=== PATIENT | male | born 1960 | race Caucasian/White ===

== ENCOUNTER → 2017-01-26 | Outpatient (CLI) | payer MEDICARE, BC ==
[~2017-01-26] MED LIST: AMBIEN 10MG10 MG PO; ASPIRIN 32325 MG/TAB PO; ASPIRIN 81M81 MG/TA2 PO; CALCIUM1 CAP PO; CASODEX 50MG TA50 MG PO; CELEBREX 200MG200 MG PO; HORMONE REPLACEMENT; NEXIUM 20MG20 MG PO; NEXIUM 40MG40 MG PO; PERCOCET 500 MG1 TAB PO; PREDNISONE1 MG PO; PRILOSEC 20MG20 MG PO; PROTONIX 40MG T40 MG PO; TYLENOL 325MG325 MG PO; TYLENOL EXTRA500 M1 PO; ZOFRAN ODT8 MG PO; [UNRECOGNIZED DRUG - OTHER]
== END ==
LOC: COL.RAD 09:34
DX: C61 Malignant neoplasm of prostate (principal); C79.51 Secondary malignant neoplasm of bone; Z90.79 Acquired absence of other genital organ(s)
CPT/HCPCS: A9503; Q9967

== ENCOUNTER 2017-04-13 12:47 | Observation (INO) | payer MEDICARE, BC ==
[~2017-04-13] VITALS: Ht 180.3 cm; Wt 90.9 kg
[~2017-04-13 12:47] MED LIST changes: -AMBIEN 10MG10 MG PO; -ASPIRIN 81M81 MG/TA2 PO; -CELEBREX 200MG200 MG PO; -NEXIUM 20MG20 MG PO; -PROTONIX 40MG T40 MG PO; -ZOFRAN ODT8 MG PO
[2017-04-13] MEDS ORDERED: ZOFRAN ODT8 MG PO (13:07)
[2017-04-13] MEDS ORDERED: CELEBREX 200MG200 MG PO (13:07)
[2017-04-13] MEDS ORDERED: NEXIUM 20MG20 MG PO (13:08)
[2017-04-13 13:23] LABS: HEMOGLOBIN 12.1 g/dl (13.5-18.0); MEAN CELL VOLUME 86 fl (80.0-100.0); MEAN CORPUSCULAR HEMOGLOBIN 29 pg (27.0-31.0); MEAN CORPUSCULAR HGB CONC 34 g/dl (33.0-37.0); MEAN PLATELET VOLUME 10.1 fl (7.4-10.4); PLATELET COUNT 113 K/mm3 (130-400); RED BLOOD COUNT 4.11 M/mm3 (4.20-5.60); REDCELL DISTRIBUTION WIDTH-CV 13.2 % (11.5-14.5); WHITE BLOOD COUNT 3.2 K/mm3 (4.8-10.8)
[2017-04-13 13:24] LABS: HEMATOCRIT 35.3 % (42.0-52.0)
[2017-04-13 13:25] LABS: ADD PATHOLOGY DIFF REVIEW NO
[2017-04-13 13:33] LABS: ADJUSTED CALCIUM 8.6 mg/dL (8.4-10.2); ALANINE AMINOTRANSFERASE 17 U/L (21-72); ALBUMIN 4.2 gm/dL (3.5-5.0); ALKALINE PHOSPHATASE 150 U/L (50-136); ANION GAP 10 mmol/L (7-16); BILIRUBIN,TOTAL 0.9 mg/dL (0.0-1.0); BLOOD UREA NITROGEN 15 mg/dL (9-20); CALCIUM 8.8 mg/dL (8.4-10.2); CARBON DIOXIDE 25 mmol/L (22-30); CHLORIDE 97 mmol/L (98-107); CREATININE, serum 0.64 mg/dL (0.66-1.25); GLUCOSE 100 mg/dL (74-106); LIPASE 32 U/L (23-300); POTASSIUM 3.9 mmol/L (3.4-5.0); SODIUM 132 mmol/L (137-145)
[2017-04-13 13:44] LABS: B-TYPE NATRIURETIC PEPTIDE 113 pg/mL (0-125)
[2017-04-13 13:45] LABS: TROPONIN-I < 0.012 ng/mL (0.000-0.034)
[2017-04-13 14:06] LABS: BAND 30 % (0-10); EOSINOPHIL 1 % (0-4); MYELOCYTE 3 % (0-0); NEUTROPHILS 52 % (42.0-75.2); OVALOCYTES 1+; PLATELET ESTIMATE NORMAL (NORMAL); TOTAL CELLS COUNTED 100
[2017-04-13 16:40] LABS: CHOLESTEROL 209 mg/dL (120-200); HDL CHOLESTEROL 44 mg/dL; LDL CHOLESTEROL 119 mg/dL; TRIGLYCERIDE 229 mg/dL
[2017-04-13 16:54] VITALS: BP 103/68; PULSE 69; TEMP 98
[2017-04-13 17:00] VITALS: BP 102/70; BP 104/70; PULSE 70; TEMP 98
[2017-04-13 17:54] VITALS: BP 103/68; PULSE 69; TEMP 98
[2017-04-13 17:55] VITALS: BP 103/68; PULSE 69; TEMP 98
[2017-04-13 17:56] VITALS: BP 103/68; PULSE 69; TEMP 98
[2017-04-13 19:20] VITALS: BP 102/56; PULSE 71; TEMP 98.4
[2017-04-13] MEDS ORDERED: AMBIEN 10MG10 MG PO (19:59)
[2017-04-14] VITALS (8 sets, daily range): BP systolic 100–127; BP diastolic 54–83; PULSE 59–98; TEMP 97.9–98.1
[2017-04-14] MEDS ORDERED: PROTONIX 40MG T40 MG PO (11:45)
[2017-04-14] MEDS ORDERED: ASPIRIN 81M81 MG/TA2 PO (14:32)
== END 2017-04-14 16:42 | disposition home or self-care (01) ==
LOC: COL.ER 12:47 → MEDICAL 15:20
PROVIDERS: Emergency Medicine
DX: R07.89 Other chest pain (principal); C61 Malignant neoplasm of prostate; C79.51 Secondary malignant neoplasm of bone; Z92.3 Personal history of irradiation; Z82.49 Family history of ischemic heart disease and other diseases of the circulatory system
CPT/HCPCS: A9502; G0378; J1650; J2270; J2785; J7030; Q9967

== ENCOUNTER → 2018-01-04 | Outpatient (CLI) | payer MEDICARE, BC ==
[~2018-01-04] MED LIST changes: +AMBIEN 10MG10 MG PO; +ASPIRIN 81M81 MG/TA2 PO; +CELEBREX 200MG200 MG PO; +NEXIUM 20MG20 MG PO; +PROTONIX 40MG T40 MG PO; +ZOFRAN ODT8 MG PO
== END ==
LOC: COL.RAD 08:56
DX: C61 Malignant neoplasm of prostate (principal); C79.51 Secondary malignant neoplasm of bone; J84.10 Pulmonary fibrosis, unspecified
CPT/HCPCS: A9503; Q9967

== ENCOUNTER → 2018-06-20 | Outpatient (CLI) | payer MEDICARE, BC | LOC: COL.RAD 08:15 | DX: C79.51 Secondary malignant neoplasm of bone (principal); M48.02 Spinal stenosis, cervical region; M50.322 Other cervical disc degeneration at C5-C6 level; M50.222 Other cervical disc displacement at C5-C6 level; M25.78 Osteophyte, vertebrae; H91.91 Unspecified hearing loss, right ear; Z85.46 Personal history of malignant neoplasm of prostate | CPT/HCPCS: A9585 ==

== ENCOUNTER → 2018-07-05 | Outpatient (CLI) | payer MEDICARE, BC | LOC: COL.RAD 07-04 10:30 | DX: C61 Malignant neoplasm of prostate (principal); C79.51 Secondary malignant neoplasm of bone; M84.48XA Pathological fracture, other site, initial encounter for fracture | CPT/HCPCS: A9503; Q9967 ==

== ENCOUNTER → 2018-10-19 | Outpatient (CLI) | payer MEDICARE, BC | LOC: COL.LAB 10:06 | DX: Z01.812 Encounter for preprocedural laboratory examination (principal) ==

== ENCOUNTER → 2019-01-02 | Outpatient (CLI) | payer MEDICARE, BC | LOC: COL.RAD 10:07 | DX: C61 Malignant neoplasm of prostate (principal); C79.51 Secondary malignant neoplasm of bone; Z96.651 Presence of right artificial knee joint | CPT/HCPCS: A9503; Q9967 ==

== ENCOUNTER → 2019-06-01 | Outpatient (CLI) | payer MEDICARE, BC | LOC: COL.RAD 05-16 10:30 | DX: C61 Malignant neoplasm of prostate (principal); C79.51 Secondary malignant neoplasm of bone | CPT/HCPCS: A9503; Q9967 ==

== ENCOUNTER 2019-09-17 09:54 | Inpatient (IN) | payer MEDICARE, BC ==
[~2019-09-17] VITALS: Ht 177.8 cm; Wt 78.1 kg
[2019-09-17] MEDS ORDERED: FENTANYL 25 MCG TD (10:25)
[2019-09-17] MEDS ORDERED: COMPAZINE 110 MG/TAB PO (10:25)
[2019-09-17 10:59] LABS: MEAN CELL VOLUME 87 fl (80.0-100.0); MEAN CORPUSCULAR HGB CONC 32 g/dl (33.0-37.0); MEAN PLATELET VOLUME 9.3 fl (7.4-10.4); PLATELET COUNT 164 K/mm3 (130-400); REDCELL DISTRIBUTION WIDTH-CV 16.5 % (11.5-14.5)
[2019-09-17 11:06] LABS: HEMATOCRIT 27.1 % (42.0-52.0); HEMOGLOBIN 8.7 g/dl (13.5-18.0); MEAN CORPUSCULAR HEMOGLOBIN 28 pg (27.0-31.0)
[2019-09-17 11:21] LABS: BAND 12 % (0-10); LYMPHOCYTE 14 % (20.0-51.0); METAMYELOCYTE 5 % (0-0); MYELOCYTE 4 % (0-0); NEUTROPHILS 58 % (42.0-75.2); NUCLEATED RED BLOOD CELL 6 (0-6); OVALOCYTES 1+; PLATELET ESTIMATE NORMAL (NORMAL)
[2019-09-17 11:25] LABS: ALANINE AMINOTRANSFERASE < 6 U/L (21-72); ALKALINE PHOSPHATASE 353 U/L (50-136); ANION GAP 11 mmol/L (7-16); AST,SGOT 54 U/L (15-37); BILIRUBIN,TOTAL 0.9 mg/dL (0.0-1.0); BLOOD UREA NITROGEN 11 mg/dL (9-20); C-REACTIVE PROTEIN 0.9 mg/dL (0.0-0.9); CALCIUM 8.9 mg/dL (8.4-10.2); CARBON DIOXIDE 19 mmol/L (22-30); CHLORIDE 108 mmol/L (98-107); GLUCOSE 189 mg/dL (74-106); LACTATE DEHYDROGENASE 866 U/L (313-618); MAGNESIUM 2.3 mg/dL (1.6-2.3); POTASSIUM 3.7 mmol/L (3.4-5.0); SODIUM 139 mmol/L (137-145)
[2019-09-17 11:28] LABS: LIPASE < 10 U/L (23-300)
[2019-09-17 11:36] LABS: TROPONIN-I < 0.012 ng/mL (0.000-0.035)
[2019-09-17 13:45] LABS: COLLECTION METHOD CLEAN CATCH
[2019-09-17 13:51] LABS: MUCOUS Present /lpf; PH 6 (5-8); SQUAMOUS EPITHELIAL None Seen /hpf; URINE APPEARANCE Clear; URINE BACTERIA None Seen /hpf; URINE BILIRUBIN Negative (NEGATIVE); URINE BLOOD Negative (NEGATIVE); URINE COLOR Yellow; URINE GLUCOSE Negative (NEGATIVE); URINE KETONE Trace (NEGATIVE); URINE LEUKOCYTE ESTERASE Negative (NEGATIVE); URINE NITRATE Negative (NEGATIVE); URINE PROTEIN(semi-quant) Negative (NEGATIVE); URINE RBC 0-2 /hpf
[2019-09-17 15:15] VITALS: BP 121/65; PULSE 88; TEMP 98.4
--- NOTE | 2019-09-17 19:34 | NUR ---
PATIENT ARRIVED IN ROOM FROM ER. NS RUNNING AT 125ML/HR. TOLERATED CLEAR LIQUID DIET WELL. HAD ABOUT 3 JELLO CUPS. TOLERATED ASSESSMENT WELL. VSS. IV SITE PATENT, CD&I. WAS PRESENT UPON INTAKE. PATIENT CLAIMS TO BE COMFORTABLE AND FEELING MUCH BETTER. PATIENT IS AWARE OF FALL PRECAUTIONS AND TO CALL PRIOR TO GETTING OUT OF BED. RESTING COMFORTABLY. NO FURTHER NEEDS WERE EXPRESSED. CALL LIGHT IS WITHIN REACH.
--- NOTE | 2019-09-17 20:00 | NUR ---
Received report from RONY Ceballos. Assessment complete. Pt resting in bed without any c/o pain, nausea, vomiting, or any discomfort. Meds administered as ordered. IV to LAC intact with fluids infusing 125ml/hr. Call light within reach.
[2019-09-17 20:33] VITALS: BP 95/75; PULSE 91; TEMP 99.2
[2019-09-17 23:59] VITALS: BP 96/61; PULSE 83; TEMP 98.6
[2019-09-18] VITALS (13 sets, daily range): BP systolic 104–127; BP diastolic 60–77; PULSE 79–87; TEMP 97.7–99
--- NOTE | 2019-09-18 05:33 | NUR ---
Pt uneventful during this shift. call light within reach.
[2019-09-18 06:49] LABS: MEAN CELL VOLUME 90 fl (80.0-100.0); MEAN CORPUSCULAR HGB CONC 31 g/dl (33.0-37.0); MEAN PLATELET VOLUME 9.3 fl (7.4-10.4); PLATELET COUNT 127 K/mm3 (130-400); RED BLOOD COUNT 2.36 M/mm3 (4.20-5.60)
[2019-09-18 06:57] LABS: HEMATOCRIT 21.3 % (42.0-52.0); HEMOGLOBIN 6.6 g/dl (13.5-18.0); MEAN CORPUSCULAR HEMOGLOBIN 28 pg (27.0-31.0)
[2019-09-18 07:00] LABS: CALCIUM 7.5 mg/dL (8.4-10.2); CREATININE, serum 0.51 (0.66-1.25); MAGNESIUM 2.2 mg/dL (1.6-2.3); PHOSPHOROUS 2.5 mg/dL (2.5-4.5); POTASSIUM 4.2 mmol/L (3.4-5.0)
--- NOTE | 2019-09-18 07:02 | NUR ---
Report given to RONY Stout.
[2019-09-18 07:40] LABS: BAND 12 % (0-10); EOSINOPHIL 1 % (0-4); LYMPHOCYTE 14 % (20.0-51.0); METAMYELOCYTE 4 % (0-0); MYELOCYTE 2 % (0-0); NEUTROPHILS 65 % (42.0-75.2); NUCLEATED RED BLOOD CELL 2 (0-6); PLATELET ESTIMATE NORMAL (NORMAL)
--- NOTE | 2019-09-18 09:00 | NUR ---
PT HAD C/O NAUSEA AND NOTED VOMITTING. ADMISTERED IV ZOFRAN. INFORMED PROVIDER. DECADRON WAS ORDERED AND WILL ADMINISTER UPON PHARMACY VARIFICATION.
--- NOTE | 2019-09-18 12:00 | NUR ---
BLOOD TRANSFUSION STARTED AT 1153. THIS NURSE STAYED WITH PT FOR THE FIRST 15MINS, NO NOTED ADVERESE REACTION. PT STATED HE FELT THE SAME BEFORE.
--- NOTE | 2019-09-18 14:14 | NUR ---
MARICHUY met with the patient to discuss discharge plan. The patient lives in [place] with his , Yaa (ph#[phone]). He reports needing assistance with bathing and has a cane and walker. He states that his helps him with bathing. The patient's PCP is Dr. Gilmer Pereira and he receives his medications at [facility]. He reports no difficulties obtaining his meds. The patient does not have advanced directives in EMR, but he states that he does have them completed and that the [facility] should have a copy. MARICHUY contacted [facility] and requested a copy. The patient states that his is his DPOA-HC. The patient plans to return home with his upon discharge. He does report that his chemo pills have been making him weaker and that he is suppose to be starting another chemo infusion next week. He anticipates that it will make him even weaker and that him and his would be interested in some private duty services. MARICHUY also discussed home health services for PT/OT/SN. The patient reports that he may be interested in home health, but would like to speak to his first about this. MARICHUY provided the patient with Medicare.gov's list of home health agencies that serve [place] and a list of the different agencies that provide private duty services. MARICHUY to continue to follow.
--- NOTE | 2019-09-18 14:44 | NUR ---
BLOOD TRANSFUSION COMPLETED AT THIS TIME. PT TOLERATED WELL. NO ADVERSE REACTIONS NOTED.
[2019-09-18 18:12] LABS: HEMATOCRIT 26.3 % (42.0-52.0); HEMOGLOBIN 8.3 g/dl (13.5-18.0)
--- NOTE | 2019-09-18 18:22 | NUR ---
PT REQUESTED HS MEDS. TAKES THEM EARLY IN EVENING USUALLY, ADMINISTERED. NO ISSUES VOICED. REFUSED LOVENOX SHOT. VOICED HOPEFULNESS ABOUT MAYBE DISCHARGING TOMORROW.
--- NOTE | 2019-09-18 20:25 | NUR ---
Resting in bed. Assessment complete. Lungs clear. Heart sounds normal. Pulses strong throughout. No edema noted. IV left AC infusing without complications. Denies pain. Reports nausea. Provided with PRN zofran. Denies other needs at this time. Call light in reach.
[2019-09-19] VITALS (7 sets, daily range): BP systolic 99–120; BP diastolic 54–65; PULSE 78–93; TEMP 98.1–98.7
--- NOTE | 2019-09-19 | NUR ---
Patient resting in bed. Denies needs at this time. Call light in reach.
--- NOTE | 2019-09-19 04:40 | NUR ---
Resting in bed. Denies needs. Call light in reach.
--- NOTE | 2019-09-19 06:03 | NUR ---
Patient had uneventful night. Resting in bed this AM. Call light in reach.
--- NOTE | 2019-09-19 07:07 | NUR ---
Report given to RONY Stout
[2019-09-19 08:11] LABS: MEAN CELL VOLUME 88 fl (80.0-100.0); MEAN CORPUSCULAR HGB CONC 32 g/dl (33.0-37.0); MEAN PLATELET VOLUME 8.9 fl (7.4-10.4); PLATELET COUNT 111 K/mm3 (130-400); RED BLOOD COUNT 2.55 M/mm3 (4.20-5.60); REDCELL DISTRIBUTION WIDTH-CV 16.4 % (11.5-14.5)
[2019-09-19 08:15] LABS: HEMATOCRIT 22.4 % (42.0-52.0); HEMOGLOBIN 7.2 g/dl (13.5-18.0); MEAN CORPUSCULAR HEMOGLOBIN 28 pg (27.0-31.0)
[2019-09-19 08:25] LABS: CREATININE, serum 0.48 (0.66-1.25); POTASSIUM 3.7 mmol/L (3.4-5.0)
--- NOTE | 2019-09-19 10:43 | NUR ---
PT REFUSED PO PREDNISONE THIS AM. INFORMED DR. BARROS. PT WAS REQUESTING IV PREDNISONE. NO NEW ORDERS AT THIS TIME.
[2019-09-19 12:13] LABS: BAND 10 % (0-10); LYMPHOCYTE 17 % (20.0-51.0); METAMYELOCYTE 2 % (0-0); MYELOCYTE 3 % (0-0); NEUTROPHILS 63 % (42.0-75.2); NUCLEATED RED BLOOD CELL 1 (0-6); PLATELET ESTIMATE DECREASED (NORMAL)
[2019-09-19 12:14] LABS: ANISOCYTOSIS 1+; HYPOCHROMIA 2+; POLYCHROMASIA 1+
--- NOTE | 2019-09-19 17:12 | NUR ---
PT WAS ABLE TO HAVE A STOOL THIS EARLY AFTERNOON. HEMOCULT OBTAINED AND RESULTS CAME BACK NEG. IV FLUID STOPPED. WILL RECHECK H&H LATER IN ORDER TO SEE IF LEVEL IS BETTER.
[2019-09-19 17:56] LABS: HEMATOCRIT 23.8 % (42.0-52.0); HEMOGLOBIN 7.5 g/dl (13.5-18.0)
--- NOTE | 2019-09-19 19:50 | NUR ---
Sitting at bedside. Assessment complete. Wheezing on inspiration otherwise clear. Denies any shortness of breath at this time. Heart sounds normal. Bowels active x4. Patient recently had large soft formed brown bowel movement. No obvious blood in stool. Pulses strong throughout. No edema noted. INT left AC flushed without complciations. Refused lovenox injection at this time. Left chest fentanyl patch present. Denies pain. Denies other needs at this time. Call light in reach.
--- NOTE | 2019-09-20 00:20 | NUR ---
Resting in bed. Denied needs. Call light in reach.
[2019-09-20 03:42] VITALS: BP 112/69; PULSE 83; TEMP 98.2
[2019-09-20 05:48] LABS: MEAN CELL VOLUME 89 fl (80.0-100.0); MEAN CORPUSCULAR HGB CONC 32 g/dl (33.0-37.0); MEAN PLATELET VOLUME 9.2 fl (7.4-10.4); PLATELET COUNT 105 K/mm3 (130-400); RED BLOOD COUNT 2.61 M/mm3 (4.20-5.60); REDCELL DISTRIBUTION WIDTH-CV 16.7 % (11.5-14.5)
[2019-09-20 06:16] LABS: HEMATOCRIT 23.2 % (42.0-52.0); HEMOGLOBIN 7.4 g/dl (13.5-18.0); MEAN CORPUSCULAR HEMOGLOBIN 28 pg (27.0-31.0)
--- NOTE | 2019-09-20 06:26 | NUR ---
Patient had uneventful night. Resting in bed this AM. Call light in reach.
[2019-09-20 06:44] LABS: BAND 12 % (0-10); LYMPHOCYTE 23 % (20.0-51.0); METAMYELOCYTE 6 % (0-0); MYELOCYTE 1 % (0-0); NEUTROPHILS 56 % (42.0-75.2); NUCLEATED RED BLOOD CELL 7 (0-6); PLATELET ESTIMATE DECREASED (NORMAL)
[2019-09-20 07:30] VITALS: BP 114/63; PULSE 76; TEMP 98.5
--- NOTE | 2019-09-20 07:31 | NUR ---
Report given to RONY Romero
--- NOTE | 2019-09-20 11:33 | NUR ---
SW attended clinical rounds. The patient is to tentatively discharge back home with his today, 09/20. SW then met with the patient and his and presented and explained the IM form. The patient verbalized understanding, signed, and he was provided a copy. SW followed up with the patient and his about home health services. The patient's reports that they are not interested in getting home health set up at this time, but will talk to the patient's PCP if they decide they want it. They had no other questions or concerns at this time. No additional needs.
[2019-09-20 11:58] VITALS: BP 107/72; PULSE 111; TEMP 98.3
[2019-09-20] MEDS ORDERED: SENOKOT S 50 MG1 TAB PO (13:14)
[2019-09-20] MEDS ORDERED: ZOFRAN ODT4 MG PO (13:14)
--- NOTE | 2019-09-20 17:02 | NUR ---
1530: pATIENT DC TO HOME VIA PRIVATE VEHICLE ACCOMPANIED BY . PRINTED DC INSTRUCTIONS TO INCLUDE MEDICATIONS AND FOLLOW UP REVIEWED WITH PATIENT. ALL QUESTIONS AND CONCERNS ANSWERED AFTER REVIEW.
[2019-09-23 04:12] LABS: PROSTATE SPECIFIC AG FREE XXX
== END 2019-09-20 15:30 | disposition home or self-care (01) | DRG 391 ==
LOC: COL.ER 09:54 → MEDICAL 13:04
PROVIDERS: Emergency Medicine; Nurse Practitioner Family; ADMIT Hospitalist
DX: R11.2 Nausea with vomiting, unspecified (principal); E43 Unspecified severe protein-calorie malnutrition; C79.51 Secondary malignant neoplasm of bone; E27.40 Unspecified adrenocortical insufficiency; E86.0 Dehydration; C61 Malignant neoplasm of prostate; D64.9 Anemia, unspecified; G47.00 Insomnia, unspecified; H00.015 Hordeolum externum left lower eyelid; D72.819 Decreased white blood cell count, unspecified; K59.00 Constipation, unspecified; T45.1X5A Adverse effect of antineoplastic and immunosuppressive drugs, initial encounter
CPT/HCPCS: OP; 99231-AI; 99232-AI; 99239; J1100; J1650; J2405; J3010; J7030; J7512; P9040; Q9967

== ENCOUNTER 2019-10-09 12:56 | Inpatient (IN) | payer MEDICARE, BC ==
[~2019-10-09] VITALS: Ht 180.3 cm; Wt 74.4 kg
[~2019-10-09 12:56] MED LIST changes: +COMPAZINE 110 MG/TAB PO; +FENTANYL 25 MCG TD; +SENOKOT S 50 MG1 TAB PO; +ZOFRAN ODT4 MG PO
[2019-10-09 13:47] LABS: ALBUMIN 4.2 gm/dL (3.5-5.0); BILIRUBIN,TOTAL 1.7 mg/dL (0.0-1.0); C-REACTIVE PROTEIN 1.2 mg/dL (0.0-0.9); CALCIUM 8.2 mg/dL (8.4-10.2); CREATININE, serum 0.58 (0.66-1.25); POTASSIUM 3.9 mmol/L (3.4-5.0); TOTAL PROTEIN 6.9 gm/dL (6.4-8.2)
[2019-10-09 14:07] LABS: MEAN CELL VOLUME 84 fl (80.0-100.0); MEAN CORPUSCULAR HGB CONC 33 g/dl (33.0-37.0); MEAN PLATELET VOLUME 11.3 fl (7.4-10.4); PLATELET COUNT 85 K/mm3 (130-400); RED BLOOD COUNT 2.73 M/mm3 (4.20-5.60); REDCELL DISTRIBUTION WIDTH-CV 16.2 % (11.5-14.5)
[2019-10-09 14:10] LABS: HEMOGLOBIN 7.5 g/dl (13.5-18.0); MEAN CORPUSCULAR HEMOGLOBIN 27 pg (27.0-31.0)
[2019-10-09 14:52] LABS: BAND 4 % (0-10); BASOPHIL 2 % (0-2); LYMPHOCYTE 36 % (20.0-51.0); MYELOCYTE 6 % (0-0); NEUTROPHILS 52 % (42.0-75.2); NUCLEATED RED BLOOD CELL 2 (0-6)
[2019-10-09 14:53] LABS: ANISOCYTOSIS 1+; MICROCYTOSIS 2+; PLATELET ESTIMATE DECREASED (NORMAL); TEAR DROP CELLS 1+
[2019-10-09 14:54] LABS: OVALOCYTES 1+
[2019-10-09] MEDS ORDERED: PREDNISONE20 MG PO (15:50)
[2019-10-09] MEDS ORDERED: PRILOSEC 20MG20 MG PO (15:52)
[2019-10-09] MEDS ORDERED: AMBIEN 10MG10 MG PO (16:53)
--- NOTE | 2019-10-09 18:38 | NUR ---
TOOK IN LOVENOX SHOT AND PREDNISONE TO PT. PT REFUSED. STATED HE WOULD TAKE IV PREDNISONE, WILL CALL PROVIDER TO SEE IF ABLE TO CHANGE TO IV. PT STATED HE WOULDNT TAKE THE LOVENOX INJECTION EITHER.
[2019-10-09 19:30] VITALS: BP 92/56; PULSE 71; TEMP 99
[2019-10-09 23:25] VITALS: BP 104/53; PULSE 91; TEMP 99.5
--- NOTE | 2019-10-09 23:57 | NUR ---
Patient resting in bed. IV in right AC, fluids running at this time. No complaints of nausea or pain at this time. Vital signs stable. Patient will be NPO at midnight for moring procedure.
[2019-10-10] VITALS (16 sets, daily range): BP systolic 90–124; BP diastolic 48–62; PULSE 76–96; TEMP 98.3–100.5
[2019-10-10 07:02] LABS: ALBUMIN 3.4 gm/dL (3.5-5.0); CALCIUM 7.3 mg/dL (8.4-10.2); CREATININE, serum 0.47 (0.66-1.25); PHOSPHOROUS 2.5 mg/dL (2.5-4.5); POTASSIUM 3.3 mmol/L (3.4-5.0)
[2019-10-10 07:04] LABS: MEAN CELL VOLUME 84 fl (80.0-100.0); MEAN CORPUSCULAR HGB CONC 32 g/dl (33.0-37.0); MEAN PLATELET VOLUME 9.9 fl (7.4-10.4); PLATELET COUNT 67 K/mm3 (130-400); RED BLOOD COUNT 2.12 M/mm3 (4.20-5.60); REDCELL DISTRIBUTION WIDTH-CV 16.6 % (11.5-14.5)
[2019-10-10 07:10] LABS: HEMATOCRIT 17.9 % (42.0-52.0); HEMOGLOBIN 5.8 g/dl (13.5-18.0); MEAN CORPUSCULAR HEMOGLOBIN 27 pg (27.0-31.0)
[2019-10-10 07:25] LABS: BILIRUBIN UNCONJUGATED 1.2 mg/dL (0.0-1.1); BILIRUBIN,TOTAL 1.2 mg/dL (0.0-1.0)
--- NOTE | 2019-10-10 08:00 | NUR ---
Assessment complete. Pt resting in bed, A&O x 3. Physical assessment unremarkable. IVF's infusing to left AC site per orders, pausing several times for distal occlusion even after wrap placed on extremity. New IV site started to left forearm d/t plan for blood transfusion. Pt reports generalized pain is tolerable at this time. No further needs reported. Call light in reach.
[2019-10-10 08:09] LABS: BAND 8 % (0-10); LYMPHOCYTE 38 % (20.0-51.0); METAMYELOCYTE 6 % (0-0); NEUTROPHILS 46 % (42.0-75.2); TEAR DROP CELLS 2+
[2019-10-10 08:10] LABS: PATHOLOGY DIFF REVIEW OK
[2019-10-10 08:10] LABS: PLATELET ESTIMATE DECREASED (NORMAL)
[2019-10-10 08:11] LABS: NUCLEATED RED BLOOD CELL 5 (0-6)
--- NOTE | 2019-10-10 09:30 | NUR ---
Pt report nausea starting to return, requesting medication which is administered per orders. Pt sipping on water and trying Jello now that procedure has been postponed.
--- NOTE | 2019-10-10 10:39 | NUR ---
Initial visit; Patient declined visit from Compound Filler stating he is aethist. wished him well and thanked him for choosing our hospital.
--- NOTE | 2019-10-10 11:24 | NUR ---
First unit of blood transfusion started at 60 ml/hr, verified by RONY Garcia. Pt denies previous adverse reactions. This nurse at bedside for 15 minutes, no s/s of reaction. Rate increased to 125 ml/hr. Call light in reach.
--- NOTE | 2019-10-10 16:21 | NUR ---
Enchilada Maker met with patient to discuss discharge planning. Patient lives between [facility] with his , Yaa (ph#[phone]). Patient sees Dr. Pereira for primary care and obtains medications from [facility] with no difficulties. Patient states he has railings in his shower and also uses a walker and cane at home. Patient states his helps him with bathing and dressing and that he may be interested in some additional assistance upon discharge. Patient plans to return home and has Advance Directives located in the EMR. SW to continue to follow to ensure safe discharge.
--- NOTE | 2019-10-10 18:45 | NUR ---
Blood transfusion complete. Pt restarted on IVF's per orders and potassium infusion per orders through left forearm IV site. Report with RONY Vazquez.
--- NOTE | 2019-10-10 19:50 | NUR ---
Resting in bed. Assessment complete. Lungs clear. Heart sounds normal. Bowels active x4. Pulses strong throughout. No edema noted. INT left AC without complications. IV left forearm infusing without complications. Denies pain at this time. Fentanyl patch to right chest present. Reports nausea. Provided with PRN zofran. Denies other needs. Call light in reach.
--- NOTE | 2019-10-10 22:47 | NUR ---
Patient requested SHERRI sanchez for sleep. Provided to patient. Denies needs. Call light in reach.
[2019-10-11 02:49] VITALS: BP 106/53; PULSE 79; TEMP 98.8
[2019-10-11 06:22] LABS: MEAN CELL VOLUME 82 fl (80.0-100.0); MEAN CORPUSCULAR HGB CONC 32 g/dl (33.0-37.0); MEAN PLATELET VOLUME 9.8 fl (7.4-10.4); PLATELET COUNT 56 K/mm3 (130-400); RED BLOOD COUNT 2.75 M/mm3 (4.20-5.60); REDCELL DISTRIBUTION WIDTH-CV 17.2 % (11.5-14.5)
[2019-10-11 06:24] LABS: HEMATOCRIT 22.6 % (42.0-52.0); HEMOGLOBIN 7.3 g/dl (13.5-18.0); MEAN CORPUSCULAR HEMOGLOBIN 27 pg (27.0-31.0)
--- NOTE | 2019-10-11 06:32 | NUR ---
Patient had uneventful night. Resting in bed this AM. Call light in reach.
[2019-10-11 06:39] LABS: CREATININE, serum 0.46 (0.66-1.25); MAGNESIUM 1.9 mg/dL (1.6-2.3); POTASSIUM 4.2 mmol/L (3.4-5.0)
--- NOTE | 2019-10-11 07:18 | NUR ---
Report given to RONY Stout
[2019-10-11 09:11] LABS: BAND 12 % (0-10); LYMPHOCYTE 34 % (20.0-51.0); NUCLEATED RED BLOOD CELL 2 (0-6); PLATELET ESTIMATE DECREASED (NORMAL)
[2019-10-11 09:13] LABS: NEUTROPHILS 42 % (42.0-75.2)
[2019-10-11 17:10] VITALS: BP 89/50; PULSE 80; TEMP 99
--- NOTE | 2019-10-11 19:08 | NUR ---
Report received from RONY Stout. Patient request night medications and PRN zofran and ambien to be given early this evening. Will provide to patient. Denies other needs at this time.
--- NOTE | 2019-10-11 19:09 | NUR ---
PT WENT DOWN FOR EGD AND GASTRIC EMTPYING STUDY TODAY. RESULTS RECORDED. PT TOLERATED PROCEDURES WELL. NO CONSERNS OR ISSUES VOICED. ADMINISTERED ZOFRAN PRIOR GASTRIC STUDY PROPHYLACTICALLY FOR NAUSEA. CARAFATE HELD UNTIL 1600 DOSE DUE TO NPO THROUGHOUT DAY FOR TESTS.
[2019-10-11 19:23] VITALS: BP 94/50; PULSE 79; TEMP 99.6
--- NOTE | 2019-10-11 19:43 | NUR ---
Resting in bed. Assessment complete. Lungs clear. Heart sounds normal. Bowels active x4. Pulses strong throughout. No edema noted. INT left forearm and left AC present without complications. Denies pain at this time. Requested PRN zofran for nausea-provided to patient. Also requested PRN ambien for sleep-provided to patient. Denies other needs at this time. Call light in reach.
[2019-10-12] VITALS (7 sets, daily range): BP systolic 91–106; BP diastolic 47–73; PULSE 59–89; TEMP 98.4–99.2
--- NOTE | 2019-10-12 01:50 | NUR ---
Resting in bed asleep. Call light in reach.
--- NOTE | 2019-10-12 06:14 | NUR ---
Patient had uneventful night. Resting in bed this AM. Call light in reach.
--- NOTE | 2019-10-12 06:58 | NUR ---
Report given to RONY Romero
[2019-10-12 07:31] LABS: MEAN CELL VOLUME 83 fl (80.0-100.0); MEAN CORPUSCULAR HGB CONC 32 g/dl (33.0-37.0); RED BLOOD COUNT 2.59 M/mm3 (4.20-5.60); REDCELL DISTRIBUTION WIDTH-CV 17.6 % (11.5-14.5)
[2019-10-12 07:32] LABS: HEMATOCRIT 21.7 % (42.0-52.0); MEAN CORPUSCULAR HEMOGLOBIN 27 pg (27.0-31.0); MEAN PLATELET VOLUME 10.2 fl (7.4-10.4); PLATELET COUNT 56 K/mm3 (130-400)
[2019-10-12 08:31] LABS: BAND 18 % (0-10); LYMPHOCYTE 20 % (20.0-51.0); METAMYELOCYTE 2 % (0-0); MYELOCYTE 2 % (0-0); NEUTROPHILS 52 % (42.0-75.2); NUCLEATED RED BLOOD CELL 6 (0-6); OVALOCYTES 1+; PLATELET ESTIMATE DECREASED (NORMAL); TEAR DROP CELLS 1+
--- NOTE | 2019-10-12 09:26 | NUR ---
AM assessment and medications completed at this time. Patient A/O x 4. sitting up in bed. Reports feelin "Exhausted: I could just sleep all day". No c/o of pain, nausea, or vomitting. Currently working on clear liquid breakfast. See flow sheet for FVS documented. Continues with borderline hypotension. No Tachycardia or fevers noted. Patient has no concerns at this time.
--- NOTE | 2019-10-12 20:20 | NUR ---
Patient assessed at this time. Alert and oriented x 4, and able to make needs known. Denies having pain at this time. Does report nausea. Given PRN Zofran as requested. Also given PRN Ambien for sleep as requested. Peripheral IVs to left forarm and left AC. LS CTA. Respirations even and unlabored. Denies SOB, dypsnea, and cough. HRR. Capillary refill less than 3 seconds. Non-tenting skin turgor. BSAx4. Abdomen soft and non-tender. Using bedside urinal. Urine clear and yellow. No edema. Voices no questions, needs, or concerns at this time. Resting in bed watching TV at this time. Call light is within reach.
[2019-10-13] VITALS (11 sets, daily range): BP systolic 90–137; BP diastolic 52–89; PULSE 77–100; TEMP 98.1–99.3
--- NOTE | 2019-10-13 05:51 | NUR ---
Patient had no further complaints of nausea throughout the night. Has denied having pain and discomfort. Resting in bed with call light within reach.
[2019-10-13 06:46] LABS: MEAN CELL VOLUME 84 fl (80.0-100.0); MEAN CORPUSCULAR HGB CONC 32 g/dl (33.0-37.0); MEAN PLATELET VOLUME 9.5 fl (7.4-10.4); PLATELET COUNT 52 K/mm3 (130-400); RED BLOOD COUNT 2.52 M/mm3 (4.20-5.60); REDCELL DISTRIBUTION WIDTH-CV 17.6 % (11.5-14.5)
[2019-10-13 06:56] LABS: CREATININE, serum 0.45 (0.66-1.25); POTASSIUM 3.7 mmol/L (3.4-5.0)
[2019-10-13 07:17] LABS: HEMATOCRIT 21.1 % (42.0-52.0); HEMOGLOBIN 6.8 g/dl (13.5-18.0); MEAN CORPUSCULAR HEMOGLOBIN 27 pg (27.0-31.0)
[2019-10-13 09:45] LABS: BAND 35 % (0-10); LYMPHOCYTE 24 % (20.0-51.0); METAMYELOCYTE 1 % (0-0); NEUTROPHILS 19 % (42.0-75.2); NUCLEATED RED BLOOD CELL 5 (0-6)
[2019-10-13 09:46] LABS: ANISOCYTOSIS 1+; HYPOCHROMIA 1+; PLATELET ESTIMATE DECREASED (NORMAL)
--- NOTE | 2019-10-13 20:20 | NUR ---
Patient assessed at this time. Alert and oriented x 4, and able to make needs known. Denies having pain and discomfort at this time. Denies having nausea. Left foearm and AC INT. Flushed. Sites are without redness, warmth, swelling, and pain. Denies SOB and dyspnea. LS CTA. Respirations even and unlabored. HRR. Capillary refill less than 3 seconds. Non-tenting skin turgor. BSAx4. Abdomen soft and non-tender. No edema. Voices no questions, needs, or concerns at this time. Resting in bed watching TV. Call light is within reach.
[2019-10-14 01:33] VITALS: BP 99/59; PULSE 79; TEMP 98
--- NOTE | 2019-10-14 05:25 | NUR ---
Patient has been resting in bed. No complaints of pain, discomfort, or nausea this shift.
[2019-10-14 08:18] VITALS: BP 116/72; PULSE 57; TEMP 99.1
[2019-10-14 08:52] LABS: MEAN CELL VOLUME 84 fl (80.0-100.0); MEAN CORPUSCULAR HGB CONC 32 g/dl (33.0-37.0); MEAN PLATELET VOLUME 10.4 fl (7.4-10.4); PLATELET COUNT 53 K/mm3 (130-400); RED BLOOD COUNT 3.03 M/mm3 (4.20-5.60); REDCELL DISTRIBUTION WIDTH-CV 16.8 % (11.5-14.5)
[2019-10-14 08:56] LABS: CALCIUM 7.4 mg/dL (8.4-10.2); CREATININE, serum 0.44 (0.66-1.25); POTASSIUM 3.4 mmol/L (3.4-5.0)
[2019-10-14 09:00] LABS: HEMATOCRIT 25.3 % (42.0-52.0); HEMOGLOBIN 8.1 g/dl (13.5-18.0); MEAN CORPUSCULAR HEMOGLOBIN 27 pg (27.0-31.0)
[2019-10-14 10:59] LABS: ANISOCYTOSIS 1+; BAND 48 % (0-10); EOSINOPHIL 1 % (0-4); LYMPHOCYTE 11 % (20.0-51.0); METAMYELOCYTE 5 % (0-0); MYELOCYTE 5 % (0-0); NEUTROPHILS 20 % (42.0-75.2); NUCLEATED RED BLOOD CELL 3 (0-6); PLATELET ESTIMATE DECREASED (NORMAL); POLYCHROMASIA 1+
[2019-10-14 12:57] VITALS: BP 110/63; PULSE 103; TEMP 98.9
[2019-10-14 15:45] VITALS: BP 104/66; PULSE 86; TEMP 99
[2019-10-14 19:15] VITALS: BP 124/59; PULSE 88; TEMP 99
--- NOTE | 2019-10-14 23:06 | NUR ---
ASSESSMENT COMPLETE. RESTING IN BED, WATCHING TV.DENIES PAIN. DENIES NEEDS AT THIS TIME.
[2019-10-14 23:47] VITALS: BP 100/59; PULSE 85; TEMP 98.2
[2019-10-15 03:37] VITALS: BP 102/62; PULSE 83; TEMP 98.8
[2019-10-15 06:27] LABS: MEAN CELL VOLUME 84 fl (80.0-100.0); MEAN CORPUSCULAR HGB CONC 32 g/dl (33.0-37.0); MEAN PLATELET VOLUME 10.8 fl (7.4-10.4); RED BLOOD COUNT 2.93 M/mm3 (4.20-5.60); REDCELL DISTRIBUTION WIDTH-CV 17.1 % (11.5-14.5)
[2019-10-15 06:36] LABS: HEMATOCRIT 24.7 % (42.0-52.0); HEMOGLOBIN 7.9 g/dl (13.5-18.0); MEAN CORPUSCULAR HEMOGLOBIN 27 pg (27.0-31.0)
[2019-10-15 06:38] LABS: PLATELET COUNT 48 K/mm3 (130-400)
[2019-10-15 07:59] VITALS: BP 106/61; PULSE 82; TEMP 98.1
--- NOTE | 2019-10-15 08:16 | NUR ---
(Late Entry 10/12/19) MARICHUY met with patient and reviewed PT/OT recommendation for home health. SW provided Medicare.gov list of HH agencies and patient selected [facility]. MARICHUY faxed referral and will continue to follow.
[2019-10-15 08:18] LABS: BAND 40 % (0-10); LYMPHOCYTE 10 % (20.0-51.0); METAMYELOCYTE 5 % (0-0); NEUTROPHILS 37 % (42.0-75.2); NUCLEATED RED BLOOD CELL 1 (0-6); PLATELET ESTIMATE DECREASED (NORMAL); TARGET CELLS 2+
[2019-10-15] MEDS ORDERED: MIRALAX510G PO (09:41)
[2019-10-15] MEDS ORDERED: REGLAN 5MG T5 MG/TAB PO (09:42)
[2019-10-15] MEDS ORDERED: SENNA-S 50 MG-81 TAB PO (09:46)
[2019-10-15] MEDS ORDERED: PRIL40 PO (09:47)
--- NOTE | 2019-10-15 10:34 | NUR ---
[facility] reports that they do not serve the [facility] area. MARICHUY informed the patient. The patient then chose [facility]. MARICHUY attempted to contact Damien at [facility]. MARICHUY left him a voicemail and faxed over the referral. The patient is also interested in getting a FWW. MARICHUY presented and explained the Patient Choice Form for DME. The patient chose [facility]. MARICHUY contacted and faxed the patient's FWW order to [facility]. The patient is to discharge today, 10/15. MARICHUY presented and explained the IM form to the patient. The patient verbalized understanding, signed, and he was provided a copy. MARICHUY to continue to follow.
--- NOTE | 2019-10-15 11:14 | NUR ---
Pt assesment completed and charted. Morning medications administered per MAR. Pt is A&O, laying in bed. Pt denies pain at this time. Pt denies SOB, currently on room air, LS cta. Heart RRR. Pt denies palpitations, N/V/D. Tolerating liquids and mechanical soft diet w/o complications. Pulses strong bilaterally. BSX4. No edema noted. LFA INT IV flushes w/o complicaitons. No other concerns expressed by patient at this time. Pt will discharge this afternoon. Awaiting wifes arrival.
--- NOTE | 2019-10-15 11:18 | NUR ---
Damien, at [facility], reports that they are able to accept the patient for services. SW to inform the patient.
[2019-10-15 12:42] VITALS: BP 97/77; PULSE 92; TEMP 98.7
--- NOTE | 2019-10-15 13:24 | NUR ---
Sayra, at [facility], reports that they would not be able to deliver the FWW until [id number]. MARICHUY informed the patient. The patient states that he would just prefer to pick it up from [facility] on the way home. MARICHUY contacted and updated Dago at [facility]. The patient is to discharge back home with his today, 10/15, with home health services for PT/OT/penitentiary from [facility]. No additional needs at this time.
--- NOTE | 2019-10-15 14:41 | NUR ---
Pt discharged, all discharge instructions discussed and reviewed with patient and who verbalized understanding. All questions answered, no further needs at this time. Pt escorted out via WC.
[2019-10-16 08:22] LABS: PATHOLOGY DIFF REVIEW OK
== END 2019-10-15 14:43 | disposition home health service (06) | DRG 391 ==
LOC: COL.ER 12:56 → MEDICAL 15:15
PROVIDERS: Hospitalist; Internal Medicine; Internal Medicine Gastroenterology; Nurse Practitioner; Nurse Practitioner Family; ADMIT Internal Medicine
PROC: 0DJ08ZZ Inspection of Upper Intestinal Tract, Via Natural or Artificial Opening Endoscopic (ICD-10-PCS; principal; 2019-10-11 08:00)
DX: R11.2 Nausea with vomiting, unspecified (principal); E43 Unspecified severe protein-calorie malnutrition; D61.810 Antineoplastic chemotherapy induced pancytopenia; C79.51 Secondary malignant neoplasm of bone; K31.84 Gastroparesis; H91.90 Unspecified hearing loss, unspecified ear; C61 Malignant neoplasm of prostate; R13.10 Dysphagia, unspecified; R74.8 Abnormal levels of other serum enzymes; T45.1X5A Adverse effect of antineoplastic and immunosuppressive drugs, initial encounter; G89.3 Neoplasm related pain (acute) (chronic); G47.00 Insomnia, unspecified; K59.00 Constipation, unspecified; K21.9 Gastro-esophageal reflux disease without esophagitis; M19.90 Unspecified osteoarthritis, unspecified site; K57.30 Diverticulosis of large intestine without perforation or abscess without bleeding; Z96.651 Presence of right artificial knee joint; Z87.11 Personal history of peptic ulcer disease
CPT/HCPCS: OP; 99231-AI; 99232-AI; 99233-AI; 99239; A9541; A9585; C9113; G0378; J0290; J1447; J2060; J2405; J2704; J2920; J3480; J7030; J7042; J7512; P9040

== ENCOUNTER 2019-10-25 13:02 | Outpatient (RCR) | payer MEDICARE, BC ==
[~2019-10-25] VITALS: Ht 180.3 cm; Wt 77.2 kg
[2019-10-25] VITALS (9 sets, daily range): BP systolic 102–139; BP diastolic 57–71; PULSE 64–95; TEMP 97.6–98.5
[~2019-10-25 13:02] MED LIST changes: +MIRALAX510G PO; +PREDNISONE20 MG PO; +PRIL40 PO; +REGLAN 5MG T5 MG/TAB PO; +SENNA-S 50 MG-81 TAB PO
--- NOTE | 2019-10-25 17:17 | NUR ---
pt moved to room 10 earlier to rest in bed, ate supper, report to Sara URIBE given, 2nd unit of blood infusing
== END 2019-10-25 18:44 | disposition home or self-care (01) ==
LOC: EUO 13:02
DX: C61 Malignant neoplasm of prostate (principal)
CPT/HCPCS: J7050; P9040

== ENCOUNTER 2020-02-11 09:31 | Emergency (ER) | payer MEDICARE, BC ==
[~2020-02-11] VITALS: Ht 180.3 cm; Wt 72.7 kg
[2020-02-11 10:26] LABS: MEAN CELL VOLUME 93 fl (80.0-100.0); MEAN CORPUSCULAR HGB CONC 31 g/dl (33.0-37.0); MEAN PLATELET VOLUME 10.5 fl (7.4-10.4); PLATELET COUNT 103 K/mm3 (130-400); RED BLOOD COUNT 3.03 M/mm3 (4.20-5.60); REDCELL DISTRIBUTION WIDTH-CV 16.9 % (11.5-14.5)
[2020-02-11 10:33] LABS: HEMATOCRIT 28.1 % (42.0-52.0); HEMOGLOBIN 8.6 g/dl (13.5-18.0); MEAN CORPUSCULAR HEMOGLOBIN 28 pg (27.0-31.0)
[2020-02-11 10:40] LABS: ALANINE AMINOTRANSFERASE 13 U/L (4-49); ALKALINE PHOSPHATASE 284 U/L (50-136); ANION GAP 14 mmol/L (7-16); AST,SGOT 21 U/L (15-37); BILIRUBIN,TOTAL 1.6 mg/dL (0.0-1.0); BLOOD UREA NITROGEN 13 mg/dL (9-20); C-REACTIVE PROTEIN 1.4 mg/dL (0.0-0.9); CALCIUM 7.7 mg/dL (8.4-10.2); CARBON DIOXIDE 20 mmol/L (22-30); CHLORIDE 103 mmol/L (98-107); CREATININE, serum 0.48 (0.66-1.25); GLUCOSE 126 mg/dL (74-106); LIPASE < 10 U/L (23-300); POTASSIUM 3.4 mmol/L (3.4-5.0); SODIUM 137 mmol/L (137-145); TOTAL PROTEIN 6.7 gm/dL (6.4-8.2)
[2020-02-11 10:46] LABS: BAND 15 % (0-10); LYMPHOCYTE 9 % (20.0-51.0); METAMYELOCYTE 2 % (0-0); NUCLEATED RED BLOOD CELL 1 (0-6); PLATELET ESTIMATE DECREASED (NORMAL); TEAR DROP CELLS 2+
[2020-02-11 10:47] LABS: NEUTROPHILS 72 % (42.0-75.2)
[2020-02-11 14:10] LABS: COLLECTION METHOD CLEAN CATCH
[2020-02-11 14:19] LABS: MUCOUS Present /lpf; PH 6 (5-8); SQUAMOUS EPITHELIAL 0-2 /hpf; URINE APPEARANCE Clear; URINE BACTERIA None Seen /hpf; URINE BILIRUBIN Negative (NEGATIVE); URINE BLOOD Negative (NEGATIVE); URINE COLOR Yellow; URINE GLUCOSE Negative (NEGATIVE); URINE KETONE 2+ (NEGATIVE); URINE LEUKOCYTE ESTERASE Negative (NEGATIVE); URINE NITRATE Negative (NEGATIVE); URINE PROTEIN(semi-quant) 1+ (NEGATIVE); URINE RBC 0-2 /hpf; URINE UROBILINOGEN >=4.0 mg/dL (NEGATIVE)
[2020-02-11 14:48] VITALS: BP 96/63; PULSE 79; TEMP 98.7
== END 2020-02-11 15:23 | disposition home or self-care (01) ==
LOC: COL.ER 09:31
PROVIDERS: Nurse Practitioner Primary Care
DX: E86.9 Volume depletion, unspecified (principal); Z85.46 Personal history of malignant neoplasm of prostate
CPT/HCPCS: J2550; J7030

== ENCOUNTER → 2020-04-04 | Outpatient (CLI) | payer MEDICARE, BC ==
[2020-04-04 10:16] LABS: MEAN CELL VOLUME 90 fl (80.0-100.0); MEAN CORPUSCULAR HEMOGLOBIN 29 pg (27.0-31.0); MEAN CORPUSCULAR HGB CONC 32 g/dl (33.0-37.0); MEAN PLATELET VOLUME 8.9 fl (7.4-10.4); PLATELET COUNT 285 K/mm3 (130-400); RED BLOOD COUNT 3.78 M/mm3 (4.20-5.60); REDCELL DISTRIBUTION WIDTH-CV 15.8 % (11.5-14.5)
[2020-04-04 10:24] LABS: ALBUMIN 4.1 gm/dL (3.5-5.0); BILIRUBIN,TOTAL 0.6 mg/dL (0.0-1.0); CALCIUM 9.6 mg/dL (8.4-10.2); CREATININE, serum 0.58 (0.66-1.25); TOTAL PROTEIN 7.7 gm/dL (6.4-8.2)
[2020-04-04 11:30] LABS: ANISOCYTOSIS 1+; BAND 8 % (0-10); EOSINOPHIL 1 % (0-4); HYPOCHROMIA 1+; LYMPHOCYTE 6 % (20.0-51.0); METAMYELOCYTE 2 % (0-0); NEUTROPHILS 78 % (42.0-75.2); NUCLEATED RED BLOOD CELL 1 (0-6); PLATELET ESTIMATE NORMAL (NORMAL)
== END ==
LOC: COL.RAD 04-01 10:00
PROVIDERS: Internal Medicine
DX: C61 Malignant neoplasm of prostate (principal); C79.51 Secondary malignant neoplasm of bone
CPT/HCPCS: A9503; Q9967

== ENCOUNTER 2020-06-10 07:17 | Inpatient (IN) | payer MEDICARE, BC ==
[2020-06-10] VITALS (10 sets, daily range): BP systolic 88–104; BP diastolic 53–62; PULSE 75–86; TEMP 97.9–98.6
[~2020-06-10] VITALS: Ht 180.3 cm; Wt 63.8 kg
[2020-06-10 07:56] LABS: MEAN CELL VOLUME 85 fl (80.0-100.0); MEAN CORPUSCULAR HGB CONC 30 g/dl (33.0-37.0); MEAN PLATELET VOLUME 8.5 fl (7.4-10.4); PLATELET COUNT 146 K/mm3 (130-400); RED BLOOD COUNT 2.45 M/mm3 (4.20-5.60); REDCELL DISTRIBUTION WIDTH-CV 19.2 % (11.5-14.5)
[2020-06-10 08:07] LABS: HEMATOCRIT 20.9 % (42.0-52.0); HEMOGLOBIN 6.3 g/dl (13.5-18.0); MEAN CORPUSCULAR HEMOGLOBIN 26 pg (27.0-31.0)
[2020-06-10 08:11] LABS: INR 1.1 (0.8-3.0); PROTHROMBIN TIME 11.8 SECONDS (9.7-12.8)
[2020-06-10 08:14] LABS: ALBUMIN 3.7 gm/dL (3.5-5.0); BILIRUBIN,TOTAL 0.7 mg/dL (0.0-1.0); CALCIUM 8.6 mg/dL (8.4-10.2); CREATININE, serum 0.53 (0.66-1.25); MAGNESIUM 2.1 mg/dL (1.6-2.3); POTASSIUM 3.6 mmol/L (3.4-5.0); TOTAL PROTEIN 6.5 gm/dL (6.4-8.2)
[2020-06-10 08:37] LABS: BAND 10 % (0-10); EOSINOPHIL 1 % (0-4); LYMPHOCYTE 17 % (20.0-51.0); NEUTROPHILS 70 % (42.0-75.2); NUCLEATED RED BLOOD CELL 1 (0-6); PLATELET ESTIMATE NORMAL (NORMAL)
[2020-06-10 08:38] LABS: TEAR DROP CELLS 1+
[2020-06-10 12:17] LABS: COLLECTION METHOD CLEAN CATCH
[2020-06-10 12:24] LABS: MUCOUS Present /lpf; PH 5 (5-8); SQUAMOUS EPITHELIAL None Seen /hpf; URINE APPEARANCE Clear; URINE BACTERIA None Seen /hpf; URINE BILIRUBIN Negative (NEGATIVE); URINE BLOOD Negative (NEGATIVE); URINE COLOR Yellow; URINE GLUCOSE Negative (NEGATIVE); URINE KETONE Negative (NEGATIVE); URINE LEUKOCYTE ESTERASE Negative (NEGATIVE); URINE NITRATE Negative (NEGATIVE); URINE PROTEIN(semi-quant) Negative (NEGATIVE); URINE RBC 0-2 /hpf; URINE UROBILINOGEN Negative (NEGATIVE)
--- NOTE | 2020-06-10 18:00 | NUR ---
Pt rested well after arriving to room 309. Reported pain to bilateral shoulders, and back. Relieved with PRN Dilaudid. Pt also reported feeling anxious, Ativan administered. Eggshell mattress applied to bed for comfort. Pt was able to stand and transfer to recliner with assistance of one. Pt did have two episodes of emesis, feels it was related to taking Prednisone on an empty stomach. Refused megace at this time. Nausea improved with Zofran. IVF infusing into LAC without issues. Still awaiting blood to arrive, discussed with patient. No needs at this time.
--- NOTE | 2020-06-10 19:53 | NUR ---
Blood transfusion started at this time. Patient aware to report transfusion reactions.
--- NOTE | 2020-06-10 19:56 | NUR ---
Resting in bed. Assessment complete. Left lower lobe wheezing with inspiration otherwise clear. Heart sounds normal. Bowels active x4. Pulses present throughout. No edema noted. IV left AC infusing with blood at this time. Reports 6/10 shoulder/back pain, will provide PRN dilaudid once BP improves. Denies needs. Remaining at bedside for 15 mins for blood transfusion.
--- NOTE | 2020-06-10 22:41 | NUR ---
Patient second transfusion started. Tolerated first transfusion well.
--- NOTE | 2020-06-10 23:35 | NUR ---
Patient BP continued to be soft. Spoke with Tanya CARTER. Hold ambien and given melatonin. Given to patient. Will continue to monitor.
[2020-06-11] VITALS (8 sets, daily range): BP systolic 95–106; BP diastolic 55–63; PULSE 73–82; TEMP 97.7–98.3
--- NOTE | 2020-06-11 00:20 | NUR ---
Tolerating blood transfusion well. Denies needs. call light in reach.
--- NOTE | 2020-06-11 01:10 | NUR ---
Tranfusion complete at 0050. H&H reordered
[2020-06-11 01:47] LABS: HEMATOCRIT 25.8 % (42.0-52.0); HEMOGLOBIN 8.2 g/dl (13.5-18.0)
--- NOTE | 2020-06-11 05:27 | NUR ---
Patient received x2 units of PRBC earlier in night. Otherwise uneventful night. Resting in bed this AM. Call light in reach.
--- NOTE | 2020-06-11 07:00 | NUR ---
Report given to RONY Ceballos
[2020-06-11 07:24] LABS: MEAN CELL VOLUME 86 fl (80.0-100.0); MEAN CORPUSCULAR HGB CONC 32 g/dl (33.0-37.0); MEAN PLATELET VOLUME 8.8 fl (7.4-10.4); PLATELET COUNT 131 K/mm3 (130-400); RED BLOOD COUNT 2.95 M/mm3 (4.20-5.60); REDCELL DISTRIBUTION WIDTH-CV 16.7 % (11.5-14.5)
[2020-06-11 07:26] LABS: HEMATOCRIT 25.3 % (42.0-52.0); HEMOGLOBIN 8.2 g/dl (13.5-18.0); MEAN CORPUSCULAR HEMOGLOBIN 28 pg (27.0-31.0)
[2020-06-11 07:37] LABS: CALCIUM 8.7 mg/dL (8.4-10.2); CREATININE, serum 0.49 (0.66-1.25); POTASSIUM 4.2 mmol/L (3.4-5.0)
[2020-06-11 07:45] LABS: BAND 10 % (0-10); EOSINOPHIL 1 % (0-4); LYMPHOCYTE 20 % (20.0-51.0); NEUTROPHILS 64 % (42.0-75.2); NUCLEATED RED BLOOD CELL 5 (0-6); PLATELET ESTIMATE NORMAL (NORMAL); SCHISTOCYTES 1+; TEAR DROP CELLS 1+
--- NOTE | 2020-06-11 08:56 | NUR ---
Pt assessment complete. Pt is laying in bed upon entry, he is A/O x4. His breathing is even and unlabored on RA. Pt denies SOB. States he feels better after his transfusion. Pt reports pain 5/10 to shoulders, refuses intervention at this time. No N/V currently. Pt did have an incontinent bowel movement this am. Did not want much of his breakfast, eggs ordered. No needs at this time. Call light within reach.
--- NOTE | 2020-06-11 12:53 | NUR ---
Personal Loan Specialist met with patient to discuss discharge planning. Patient lives in [place] with his , Yaa (ph#[phone]) and sees Dr. Pereira for primary care. Patient sees Dr. Son for Oncology. Patient obtains medications from [facility] with no difficulties and has a walker, cane, bedside commode, and tub transfer bench at home. Patient receives nursing, physical therapy, and bath aide services [facility]. Patient plans to return home with continued services. Patient has Advance Directives in EMR which designate his , Yaa and daughter, Gudelia. SW contacted Yaa to review discharge plan. Yaa agrees with discharge home with continued services from [facility]. Yaa reports their daughter, Gudelia is getting in their back yard on Jun 28 and the hope is that patient can attend. MARICHUY contacted Mesha at [facility] and faxed updates. MARICHUY will continue to follow.
--- NOTE | 2020-06-11 18:42 | NUR ---
Pt rested in bed all day, up very little unless with PT. Intermittent pain to shoulders and back, PRN Dilaudid relieved pain. No N/V. Pt states he feels better after blood transfusions. No needs at this time.
--- NOTE | 2020-06-11 20:00 | NUR ---
Patient assessed at this time. Alert and oriented x 4, and able to make needs known. Denies having pain and discomfort at this time. Given PRN Ambien for sleep as requested. Peripheral IV to left AC with NS at 75 ml/hr. Site is without redness, warmth, swelling, and pain. Wrapped with zachariah for protection as requested. Scratch to left forearm. Denies SOB and dyspnea. LS CTA. Respirations even and unlabored. HRR. Capillary refill less than 3 seconds. Non-tenting skin tugor. BSAx4. Abdomen soft and non-tender. Denies diarrhea and constipation. Given Miralax per orders, but refused Senokot. Urine clear and yellow, used bedside urinal. No edema. Took off bilateral knee braces per patient's request. Voices no questions, needs, or concerns at this time. Resting in bed with call light within reach.
[2020-06-12] VITALS (7 sets, daily range): BP systolic 98–118; BP diastolic 61–80; PULSE 78–94; TEMP 97.9–98.7
--- NOTE | 2020-06-12 03:30 | NUR ---
Patient given PRN Dilaudid for pain at this time.
--- NOTE | 2020-06-12 05:05 | NUR ---
Patient resting in bed most of the night. Called for pain medication once during the night. NS continues to run at 75 ml/hr per orders. Voices no questions, needs, or concerns this time. Call light is within reach.
[2020-06-12 07:01] LABS: MEAN CELL VOLUME 86 fl (80.0-100.0); MEAN CORPUSCULAR HGB CONC 32 g/dl (33.0-37.0); PLATELET COUNT 125 K/mm3 (130-400); RED BLOOD COUNT 2.95 M/mm3 (4.20-5.60); REDCELL DISTRIBUTION WIDTH-CV 17.3 % (11.5-14.5)
[2020-06-12 07:09] LABS: HEMATOCRIT 25.4 % (42.0-52.0); HEMOGLOBIN 8.2 g/dl (13.5-18.0); MEAN CORPUSCULAR HEMOGLOBIN 28 pg (27.0-31.0)
[2020-06-12 07:16] LABS: CALCIUM 8.9 mg/dL (8.4-10.2); CREATININE, serum 0.48 (0.66-1.25); POTASSIUM 4.3 mmol/L (3.4-5.0)
--- NOTE | 2020-06-12 09:10 | NUR ---
Initial visit; Patient thanked Plug Stitcher for looking in on him and offering Spiritual Care.
[2020-06-12 09:55] LABS: ANISOCYTOSIS 1+; BAND 10 % (0-10); EOSINOPHIL 1 % (0-4); LYMPHOCYTE 9 % (20.0-51.0); NEUTROPHILS 77 % (42.0-75.2)
[2020-06-12 09:56] LABS: HYPOCHROMIA 1+; PLATELET ESTIMATE DECREASED (NORMAL)
--- NOTE | 2020-06-12 13:32 | NUR ---
Primary nurse was assisted with [phone] patient care by [facility] ADJyoti Underwood and [facility] instructor Clotilde Flor RN-.
--- NOTE | 2020-06-12 18:51 | NUR ---
PT HAD AN UNEVENTFUL DAY. THERE WAS A PLAN TO D/C THE PT, HOWEVER HIS HGB WAS 8.4 AND THE [facility] DECIDED IT MAY BE BEST FOR THE PT TO RECEIVE ANOTHER UNIT OF IRRADIATED PRBCs. THE PATIENT WAS GIVEN THE PRBCs, AND IS PENDING D/C TOMORROW AFTER FURTHER ASSESSMENT OF HIS HGB. PT HAD NO COMPLAINTS TODAY. NO FURTHER CONCERN. WILL ENDORSE TO PRODUCT SAFETY PROFESSIONAL RN.
--- NOTE | 2020-06-12 20:15 | NUR ---
Patient assessed at this time. Alert and oriented x 4, and able to make needs known. Reported level 6 pain. Given PRN Dilaudid as requested. Peripheral IV to left AC. NS running at 75 ml/hr. Denies having SOB and dyspnea. LS CTA. Respirations even and unlabored. HRR. Capillary refill less than 3 seconds. Non-tenting skin turgor. BSAx4. Abdomen soft and non-tender. No edema. Voices no questions, needs, or concerns at this time. Resting in bed with call light within reach.
[2020-06-13 00:55] VITALS: BP 95/53; PULSE 76; TEMP 98.2
[2020-06-13 04:46] VITALS: BP 101/56; PULSE 73; TEMP 98.2
--- NOTE | 2020-06-13 05:09 | NUR ---
Patient has not voiced any complaints of pain or discomfort since receiving PRN Dilaudid around 2014. Has voiced no questions, needs, or concerns. Resting in bed with call light within reach.
--- NOTE | 2020-06-13 06:20 | NUR ---
Patient's IV to left AC came out. New IV started to right AC. Give PRN Dilaudid for pain as requested. Voices no further questions, needs, or concerns at this time. Resting in bed with call light within reach.
--- NOTE | 2020-06-13 07:39 | NUR ---
Pt resting in bed at this time. Pt has no needs. Call light within reach, breakfast tray at bedside. No further concerns.
[2020-06-13 07:42] LABS: MEAN CELL VOLUME 87 fl (80.0-100.0); MEAN CORPUSCULAR HGB CONC 32 g/dl (33.0-37.0); MEAN PLATELET VOLUME 9.1 fl (7.4-10.4); PLATELET COUNT 144 K/mm3 (130-400); RED BLOOD COUNT 3.71 M/mm3 (4.20-5.60); REDCELL DISTRIBUTION WIDTH-CV 17.3 % (11.5-14.5)
[2020-06-13 07:46] LABS: HEMATOCRIT 32.1 % (42.0-52.0); HEMOGLOBIN 10.4 g/dl (13.5-18.0); MEAN CORPUSCULAR HEMOGLOBIN 28 pg (27.0-31.0)
[2020-06-13 07:58] LABS: CALCIUM 9.2 mg/dL (8.4-10.2); CREATININE, serum 0.46 (0.66-1.25); POTASSIUM 3.5 mmol/L (3.4-5.0)
[2020-06-13] MEDS ORDERED: MIRALAX510G PO (08:20)
[2020-06-13] MEDS ORDERED: SENOKOT S 50 MG1 TAB PO (08:21)
[2020-06-13] MEDS ORDERED: MEGACE ORAL40 MG/ML PO (08:26)
[2020-06-13 08:29] VITALS: BP 103/63; PULSE 79; TEMP 98.5
[2020-06-13 09:39] LABS: BAND 12 % (0-10); LYMPHOCYTE 16 % (20.0-51.0); MYELOCYTE 3 % (0-0); NEUTROPHILS 66 % (42.0-75.2); NUCLEATED RED BLOOD CELL 2 (0-6); PLATELET ESTIMATE NORMAL (NORMAL)
--- NOTE | 2020-06-13 11:18 | NUR ---
Bread And Pastry Baker met with patient as he is to discharge today with continued Home Health services from [facility]. Patient states his will be here later to pick him up. SW read IM form aloud to patient who verbalized understanding and gave SW permission to sign on his behalf. SW placed form in chart and provided copy to patient. SW faxed discharge orders to [facility]. No additional needs at this time.
[2020-06-13 13:00] VITALS: BP 106/65; PULSE 78; TEMP 97.9
--- NOTE | 2020-06-13 16:02 | NUR ---
PT SHOWERING AND GETTING PREPARED TO DISCHARGE HOME.
== END 2020-06-13 17:00 | disposition home or self-care (01) | DRG 811 ==
LOC: COL.ER 07:17 → MEDICAL 08:56
PROVIDERS: Emergency Medicine; Hospitalist; Physician Assistant; ADMIT Internal Medicine
DX: D64.9 Anemia, unspecified (principal); E43 Unspecified severe protein-calorie malnutrition; Z68.1 Body mass index [BMI] 19.9 or less, adult; C61 Malignant neoplasm of prostate; K59.00 Constipation, unspecified; G47.00 Insomnia, unspecified; R53.81 Other malaise; K31.84 Gastroparesis
CPT/HCPCS: 99222-AI; 99232-AI; 99233-AI; 99239; J1170; J2060; J2405; J7030; J7512; P9040

== ENCOUNTER 2020-07-31 12:32 | Outpatient (RCR) | payer MEDICARE, BC ==
[2020-07-31] VITALS (10 sets, daily range): BP systolic 116–141; BP diastolic 78–88; PULSE 93–117; TEMP 98.2–98.7
[~2020-07-31] VITALS: Ht 180.3 cm; Wt 65.9 kg
[~2020-07-31 12:32] MED LIST changes: +MEGACE ORAL40 MG/ML PO
--- NOTE | 2020-07-31 16:10 | NUR ---
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
--- NOTE | 2020-07-31 18:19 | NUR ---
Pt escorted out via wheelchair and assisted into vehicle.Per pts she has neighbors at home to assist with getting pt inside house.Pt transferred with minimal assistance.
== END 2020-07-31 18:19 | disposition home or self-care (01) ==
LOC: EUO 12:32
DX: C61 Malignant neoplasm of prostate (principal); D70.2 Other drug-induced agranulocytosis
CPT/HCPCS: J7050; P9016

== ENCOUNTER 2020-08-22 09:30 | Outpatient (RCR) | payer MEDICARE, BC ==
[~2020-08-22] VITALS: Ht 180.3 cm; Wt 64.5 kg
[2020-08-22] VITALS (10 sets, daily range): BP systolic 110–136; BP diastolic 65–84; PULSE 79–100; TEMP 97.4–98.6
[2020-08-22] MEDS ORDERED: MOTRIN 200200 MG/TAB PO (09:36)
[2020-08-22] MEDS ORDERED: MIRALAX PA17 GM/Dose PO (11:26)
[2020-08-22] MEDS ORDERED: ZOFRAN ODT8 MG PO (11:27)
[2020-08-22] MEDS ORDERED: ATIVAN 0.50.5 MG/TAB PO (11:28)
[2020-08-22] MEDS ORDERED: MUCUS RELIEF200 MG PO (11:29)
[2020-08-22] MEDS ORDERED: DILAUDID 2MG TAB2 MG PO (11:30)
[2020-08-22] MEDS ORDERED: ROXANOL 20MG20 MG/ML PO (11:33)
--- NOTE | 2020-08-22 17:00 | NUR ---
Pt assisted to dress, and into wheelchair. He is assisted out by wheelchair to 's car. He tolerated blood transfusions without issue. Pain and discomfort pt was experiencing initially were much improved following use of him home medications, as documented in the Med Reconciliation. INT was DC'd with catheter intact, site dressed with coban.
== END 2020-08-22 17:43 | disposition home or self-care (01) ==
LOC: EUO 09:30
DX: C61 Malignant neoplasm of prostate (principal); C79.51 Secondary malignant neoplasm of bone
CPT/HCPCS: J7050; P9016